=== PATIENT | male | born 1995 | race Caucasian/White ===

== ENCOUNTER 2016-10-14 00:48 | Emergency (ER) | payer OTHER ==
[~2016-10-14] VITALS: Ht 165.1 cm; Wt 60.3 kg
[~2016-10-14 00:48] MED LIST: AUGMENTIN 875-1 EACH PO; CYCLOBENZAPRINE10 MG PO; IBUPROFEN600 MG PO; KEFLEX500 MG PO; NAPROXEN500 MG PO; NORCO 5-325 TA1 EACH PO; SEPTRA DS TABL1 EACH PO; TRAMADOL HCL50 MG PO
== END 2016-10-14 02:18 | disposition home or self-care (01) ==
LOC: ED 00:48
DX: N34.2 Other urethritis (principal); Z90.49 Acquired absence of other specified parts of digestive tract; Z91.038 Other insect allergy status; Z91.018 Allergy to other foods
CPT/HCPCS: 81001; 87088; 87491; 87591; 96372; 99283; J0696

== ENCOUNTER 2016-12-16 22:07 | Emergency (ER) | payer OTHER ==
[~2016-12-16] VITALS: Ht 165.1 cm; Wt 68.0 kg
[2016-12-16] MEDS ORDERED: ACYCLOVIR200 MG PO (22:30)
== END 2016-12-16 22:35 | disposition home or self-care (01) ==
LOC: ED 22:07
DX: A60.00 Herpesviral infection of urogenital system, unspecified (principal); Z91.038 Other insect allergy status; Z87.891 Personal history of nicotine dependence; Z90.49 Acquired absence of other specified parts of digestive tract; Z91.018 Allergy to other foods
CPT/HCPCS: 99283

== ENCOUNTER → 2017-01-29 | Emergency (ER) | payer OTHER ==
[~2017-01-29] VITALS: Ht 165.1 cm; Wt 65.8 kg
[~2017-01-29] MED LIST changes: +ACYCLOVIR200 MG PO; +ACYCLOVIR400 MG PO; +ADVIL200 MG PO
== END ==
LOC: ED 20:23
DX: S00.33XA Contusion of nose, initial encounter (principal); Z87.891 Personal history of nicotine dependence; Z90.49 Acquired absence of other specified parts of digestive tract; Z91.030 Bee allergy status; Z79.899 Other long term (current) drug therapy; Z91.02 Food additives allergy status; W50.0XXA Accidental hit or strike by another person, initial encounter; Y93.72 Activity, wrestling
CPT/HCPCS: 99282

== ENCOUNTER 2017-02-04 20:34 | Emergency (ER) | payer OTHER ==
[~2017-02-04] VITALS: Ht 165.1 cm; Wt 65.8 kg
[~2017-02-04 20:34] MED LIST changes: -ACYCLOVIR400 MG PO; -ADVIL200 MG PO
[2017-02-04] MEDS ORDERED: ACYCLOVIR400 MG PO (20:41)
[2017-02-04] MEDS ORDERED: ADVIL200 MG PO (20:42)
== END 2017-02-04 21:40 | disposition home or self-care (01) ==
LOC: ED 20:34
DX: J20.9 Acute bronchitis, unspecified (principal); H66.92 Otitis media, unspecified, left ear; Z87.891 Personal history of nicotine dependence; Z91.030 Bee allergy status; Z91.02 Food additives allergy status; Z79.899 Other long term (current) drug therapy
CPT/HCPCS: 99282

== ENCOUNTER 2019-11-09 19:42 | Emergency (ER) | payer SELFPAY ==
[~2019-11-09] VITALS: Ht 167.6 cm; Wt 72.6 kg
[~2019-11-09 19:42] MED LIST changes: +ACYCLOVIR400 MG PO; +ADVIL200 MG PO
--- OUTSIDE RECORDS SUMMARY | 2019-11-09 19:44 | XMS ---
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 Giorgio VISIT COUNT (12 MO.) 1 OSKAR Valerio TOTAL 1 NOTE: Visits indicate total known visits. ED/UCC VISIT TRACKING (12 MO.) 11/09/2019 19:42 [facility] TYPE: Emergency COMPLAINT: - FALL INPATIENT VISIT TRACKING (12 MO.) No inpatient visits to display in this time frame [email or web address]
== END 2019-11-09 21:08 | disposition home or self-care (01) ==
LOC: ED 19:42
DX: S06.9X1A Unspecified intracranial injury with loss of consciousness of 30 minutes or less, initial encounter (principal); F17.200 Nicotine dependence, unspecified, uncomplicated; Z91.030 Bee allergy status; Z91.02 Food additives allergy status; V80.010A Animal-rider injured by fall from or being thrown from horse in noncollision accident, initial encounter
CPT/HCPCS: 70450; 72125; 99284-25

== ENCOUNTER 2022-05-17 21:19 | Emergency (ER) | payer OTHER ==
[~2022-05-17] VITALS: Ht 167.6 cm; Wt 77.1 kg
--- OUTSIDE RECORDS SUMMARY | 2022-05-17 21:28 | XMS ---
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 Giorgio VISIT COUNT (12 MO.) Avani Valerio TOTAL 1 NOTE: Visits indicate total known visits. ED/UCC VISIT TRACKING (12 MO.) 05/17/2022 21:21 [facility] TYPE: Emergency COMPLAINT: - SORE THROAT INPATIENT VISIT TRACKING (12 MO.) No inpatient visits to display in this time frame [email or web address]
[2022-05-17] MEDS ORDERED: IBU800 MG PO (22:47)
== END 2022-05-17 23:19 | disposition home or self-care (01) ==
LOC: ED 21:19
DX: J02.9 Acute pharyngitis, unspecified (principal); Z20.822 Contact with and (suspected) exposure to COVID-19; F17.200 Nicotine dependence, unspecified, uncomplicated; Z91.030 Bee allergy status; Z91.018 Allergy to other foods
CPT/HCPCS: 87081; 87502; 87880; 99283; A9270; U0003